=== PATIENT | male | born 1990 | race Caucasian/White ===

== ENCOUNTER 2018-05-15 10:47 | Emergency (ER) | payer BC, OTHER ==
--- NOTE | 2018-05-15 12:30 | RAD ---
Indication: Right scrotal pain. Real-time sonography of the scrotum was performed. The right testis measures 3.7 x 2.4 x 2.6 cm. No intratesticular masses are noted. Color Doppler interrogation demonstrates normal flow in the right testis. The epididymis measures 0.9 x 1.6 cm with no hydrocele. The left testis measures 3.5 x 2.2 x 3.1 cm. No intratesticular masses are noted. Normal flow is noted in the left testis. The left epididymal head measures 1.1 x 0.8 cm. No hydrocele is noted. There are small cysts in the epididymis bilaterally measuring up to 0.9 cm on the right and 0.9 cm on the left. IMPRESSION: No intratesticular masses are noted. Normal flow is noted in both testes. No evidence of dilatation.
[2018-05-15 16:25] VITALS: BP 122/74
--- NOTE | 2018-05-15 17:44 | ED ---
GI/ HPI - HPI Summary HPI Summary: Patient is a 27-year-old male who presents emergency department for testicular pain 2 days. 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 Patient states he developed right intermittent groin pain and testicle pain. Pt. states pain increased today and he went to urgent care. Reportedly at urgent care physician performed open book maneuver and pain significantly improved and was referred to ER. In ER pt. still has mild pain. Symptoms are moderate in severity. Movement makes symptoms worse. Rest makes sxs better. No past medical hx. - History of Current Complaint Chief Complaint: EDUrogenitalProblems Time Seen by Provider: 05/15/18 11:06 Stated Complaint: TESTICULAR PAIN Hx Obtained From: Patient Pain Intensity: 6 - Allergy/Home Medications Allergies/Adverse Reactions: Allergies Allergy/AdvReac Type Severity Reaction Status Date / Time No Known Allergies Allergy Verified 04/25/15 11:48 Home Medications: Home Medications NK [No Home Medications Reported] 05/15/18 [History Confirmed 05/15/18] PMH/Surg Hx/FS Hx/Imm Hx Previously Healthy: Yes Infectious Disease History: No Infectious Disease History: Denies: History Other Infectious Disease, Traveled Outside the [place] in Last 30 Days - Family History Known Family History: Positive: Other - noncontributory - Social History Occupation: Employed Full-time Lives: With Family Alcohol Use: Weekly Alcohol Amount: 2-3 drink/week Substance Use Type: Reports: None Smoking Status (MU): Never Smoked Tobacco Review of Systems Constitutional: Negative Negative: Fever, Chills Positive: other - testicle pain. Negative: burning, dysuria, frequency, flank pain All Other Systems Reviewed And Are Negative: Yes Physical Exam Triage Information Reviewed: Yes Vital Signs On Initial Exam: Initial Vitals Temp Pulse Resp BP Pulse Ox 97.8 F 65 17 134/87 100 05/15/18 10:50 05/15/18 10:50 05/15/18 10:50 05/15/18 10:50 05/15/18 10:50 Vital Signs Reviewed: Yes Appearance: Positive: Well-Appearing - Pt. lying in bed in NAD. present Skin: Positive: Warm, Dry Abdomen Description: Positive: Nontender, Soft Male Genital Exam: Positive: Other - Diffuse right testicular pain. I do not appreciate any erythema or edema. No hernia noted. DANIEL Campbell present for exam, Martin. Neurological: Positive: Normal, CN Intact II-III Psychiatric: Positive: Affect/Mood Appropriate Diagnostics - Vital Signs Vital Signs Temp Pulse Resp BP Pulse Ox 05/15/18 16:24 98.3 F 65 16 122/74 97 05/15/18 10:50 97.8 F 65 17 134/87 100 - Laboratory Lab Statement: Any lab studies that have been ordered have been reviewed, and results considered in the medical decision making process. GIGU Course/Dx - Course Course Of Treatment: Pt. presenting with testicular pain and possible testicular torsion that was detorsed potentially at urgent care. His pain has improved since then the ER. Ultrasound performed as soon as patient arrives. His exam is relatively unremarkable other than diffuse pain to the right testicle. Patient declined pain medication. Ultrasound shows good blood flow testicles without edema, with small epididymal cyst. I spoke with urology, Dr. Adler, who eventually examine pt. in the ER. He does not feel that pt .had a torsion based on his exam today. He feels pain is coming from cyst. He advised ice and elevate. NSAIDS. Pt. will f.u with urology if needed and return to ER if sxs change or worsen. - Diagnoses Differential Diagnoses - Male: STD, Testicular Torsion, Ureteral Calculi, Urethritis, Urinary Tract Infection Provider Diagnoses: Testicle pain, Epididymal cyst Discharge - Sign-Out/Discharge Documenting (check all that apply): Patient Departure - Discharge Plan Condition: Good Disposition: HOME Patient Education Materials: Testicle Pain (ED) Referrals: No Primary Care Phys,NOPCP [Primary Care Provider] - Pavel Adler MD [Medical Doctor] - Additional Instructions: Follow up with urology if pain continues Ice and elevate Tylenol or Motrin for pain as directed Return to ER if symptoms change or worsen - Billing Disposition and Condition Condition: GOOD Disposition: Home
--- NOTE | 2018-05-16 19:12 | CONS ---
CONSULTATION NOTE: DATE OF CONSULT: 05/15/18 - EMERGENCY DEPT HISTORY OF PRESENT ILLNESS: I was asked by the emergency room staff to see this 27-year-old white male because of intermittent episodes of right testicular pain. The patient's symptoms started about 2 days ago and followed after heavy lifting and straining. The pain was moderately severe; however, it was not associated with any nausea, vomiting, and the pain was not severe enough to him to have him stop his physical activities. On self-examination, he did not notice any significant change in the size or the position of his testis . He denies any previous similar episodes of testicular pain. He denies any past history of any inguinal or scrotal trauma or surgery. Because of the persistent pain, he presented to the [facility] and from there, he was referred to the emergency room to rule out a testicular torsion. In the emergency room, the patient had a scrotal ultrasound while he was having the same type and degree of pain. The study was normal showing normal testes without any testicular masses. There was good blood flow bilaterally and no evidence of any testicular edema or testicular torsion. There were bilateral epididymal cysts measuring about 1 cm each. The patient was observed in the emergency room and because he continued to have right scrotal discomfort, a consultation was obtained. The patient denies any voiding symptoms. Denies any flank or abdominal pain. PAST MEDICAL HISTORY: The patient is in excellent health. MEDICATIONS: He is on no chronic medications. ALLERGIES: Denies allergies to medications. SOCIAL HISTORY: He works as an welcome hostess. PHYSICAL EXAM: Pleasant, healthy looking young man, who is in no acute pain. Exam of the abdomen is normal. He has no CVA tenderness. External Genitalia: He is circumcised. No penile lesions. Scrotal exam shows both testes to be normal in position, axis, and consistency. The right testis in particular is completely normal and it is located low in the scrotum. No testicular mass are felt on either side. No hydrocele, varicocele, or inguinal hernias noted on either side. The site of the tenderness in the right scrotum is originating from the globus major of the right epididymis where a 1-cm epididymal cyst was noted. There is a similar but less tender cyst noted on the globus major of the left epididymis. No inguinal hernias noted. IMPRESSION: Right scrotal pain. The pain is originating from the epididymis and not from the testis. This could be secondary to either epididymal congestion or small possibility of torsion of an appendix epididymis. PLAN: The plan is for conservative management with scrotal elevation and nonsteroidals. I asked him to come back to the emergency room or call the office if he develops any acute episode of pain. I will see him in my office for followup in 7 to 10 days, earlier if needed. [id number]/[facility] #: [id number] [facility]
== END 2018-05-15 16:24 | disposition home or self-care (01) ==
LOC: ED 10:47
DX: N50.811 Right testicular pain (principal); N50.3 Cyst of epididymis
CPT/HCPCS: 76870; 99282